=== PATIENT | female | born 1975 | race Caucasian/White ===

== ENCOUNTER → 2019-06-21 | Outpatient (CLI) | payer OTHER | LOC: M SLEEP HO 10:10 | PROVIDERS: ATTEND Internal Medicine Cardiovascular Disease | DX: R06.83 Snoring (principal) ==

== ENCOUNTER 2019-07-10 05:57 | Day surgery (SDC) | payer OTHER ==
[~2019-07-10] VITALS: Ht 160 cm; Wt 64.9 kg
[~2019-07-10 05:57] MED LIST: ATOR80TA59 PO; CHLO25TA PO; D32000TA PO; TELM1TAB37 PO
[2019-07-10] MEDS ORDERED: LR 1,000 ML IV ONE (06:00)
[2019-07-10 06:35] LABS: HEMATOCRIT 34.7 % (36.0-47.0)
[2019-07-10 06:44] LABS: HCG, SERUM QUALITATIVE NEGATIVE (NEGATIVE)
[2019-07-10] MEDS ORDERED: LIDOCAINE W/EPINEPHRINE 1% 20ML VIAL As Ordered ONE (06:56)
[2019-07-10] MEDS ORDERED: IODINE STRONG SOLN 15 ML BTL As Ordered ONE (06:56)
[2019-07-10] MEDS ORDERED: KETOROLAC 60 MG/2 ML VIAL (J1885) As Ordered ONE (07:15)
[2019-07-10] MEDS ORDERED: fentaNYL 100 MCG/2 ML INJECTION (J3010) As Ordered ONE (07:15)
[2019-07-10] MEDS ORDERED: dexameTHASONE 4 MG/ML 1ML VIAL (J1100) As Ordered ONE (07:15)
[2019-07-10] MEDS ORDERED: MIDAZOLAM INJ 2 MG/2 ML VIAL (J2250) As Ordered ONE (07:15)
[2019-07-10] MEDS ORDERED: ONDANSETRON 4MG/2ML VIAL (J2405) As Ordered ONE (07:16)
[2019-07-10] MEDS ORDERED: PROPOFOL 200 MG/20 ML VIAL As Ordered ONE (07:16)
[2019-07-10] MEDS ORDERED: LIDOCAINE 2% INJ 100 MG/5 ML SDV (FOR ANES.) As Ordered ONE (07:16)
[2019-07-10] MEDS ORDERED: ACETAMINOPHEN 1000MG 100ML IV BTL (OFIRMEV) (J0131 PER 10MG) As Ordered ONE (07:16)
[2019-07-10] MEDS ORDERED: SCOPOLAMINE 1MG TRANSDERMAL PATCH As Ordered ONE (07:31)
[2019-07-10] MEDS ORDERED: LIDOCAINE 1% SDV INJ 30 ML VIAL As Ordered ONE (07:52)
[2019-07-10] MEDS ORDERED: METOCLOPRAMIDE INJ 10MG/2ML VIAL (J2765) As Ordered ONE (07:57)
[2019-07-10] MEDS ORDERED: SCOPOLAMINE 1MG TRANSDERMAL PATCH TOP ONE (08:00)
[2019-07-10] MEDS ORDERED: ePHEDrine SULFATE 25 MG/5 ML(5MG/ML) SYRINGE As Ordered ONE (08:25)
[2019-07-10] MEDS ORDERED: fentaNYL 100 MCG/2 ML INJECTION (J3010) IV PRN (09:00)
[2019-07-10] MEDS ORDERED: MEPERIDINE INJ 25 MG/ML VIAL (J2175) IV PRN (09:00)
[2019-07-10] MEDS ORDERED: ONDANSETRON 4MG/2ML VIAL (J2405) IV PRN (09:00)
[2019-07-10] MEDS ORDERED: METOCLOPRAMIDE INJ 10MG/2ML VIAL (J2765) IV PRN (09:00)
[2019-07-10] MEDS ORDERED: oxyCODONE 5MG TAB PO PRN (09:00)
[2019-07-10] MEDS ORDERED: LR 1,000 ML IV SCH (09:00)
[2019-07-10 09:35] VITALS: BP 144/78
--- NOTE | 2019-07-10 10:55 | RO ---
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 PROCEDURE PERFORMED: LEEP. SURGEON: Purvi Menjivar MD. ANESTHESIA: General. DESCRIPTION OF FINDINGS: There was a central nonstaining portion of the cervix when Lugol solution was applied. Infection classification II. MATERIALS TO LAB: 1. Superficial LEEP. 2. Deep LEEP. ESTIMATED BLOOD LOSS: 10 mL. IV FLUIDS: 1 liter of lactated Ringer's. Urine output was not measured INDICATIONS FOR OPERATION: Celine is a 43-year-old 6, 4, P 3-1-0-4, who has a history of persistent low grade squamous intraepithelial lesion of the cervix after counseling, after previous colposcopy revealed continued Low-grade squamous intraepithelial lesion (LGSIL), the patient desired a Loop Electrosurgical Excision Procedure (LEEP) procedure for treatment in the hopes that this will resolve the issue. DESCRIPTION OF OPERATION: After obtaining informed consent the patient was taken to the operating room where she underwent general anesthesia. She was placed in low lithotomy position and the perineum and vagina were prepped and draped in sterile fashion. A coated speculum was placed into the vagina and 10 mL of 1% lidocaine were injected for an intracervical block. Lugol solution was applied. LEEP was completed in two passes. The first was a superficial LEEP and the second was a deep portion. Electrocautery was applied to the LEEP bed with adequate hemostasis. Monsel solution was applied afterwards with adequate hemostasis noted. The patient tolerated the procedure well. Specimen was sent off to pathology. The patient was awakened from anesthesia and transferred to the recovery room in good condition after speculum was removed and vaginal sweep revealed nothing retained the vagina. All counts were correct times two.
== END 2019-07-10 10:18 | disposition home or self-care (01) ==
LOC: M SDC 05:57 → EDUNIT# 07:30 → M SDC 10:18
PROVIDERS: ATTEND Obstetrics & Gynecology
DX: N87.0 Mild cervical dysplasia (principal); I10 Essential (primary) hypertension; Z79.899 Other long term (current) drug therapy; Z88.5 Allergy status to narcotic agent
CPT/HCPCS: 36415; 57522; 84703; 85014; 85018; 86850; 86900; 86901; 88307; J0131; J1100; J1885; J2250; J2405; J2765; J3010

== ENCOUNTER 2023-11-24 12:32 | Outpatient (CLI) | payer OTHER ==
[~2023-11-24] VITALS: Ht 160 cm; Wt 66.5 kg
[~2023-11-24 12:32] MED LIST changes: +IRON1TAB2 PO; +LEXA5TAB13 PO; +LOSA100T46; +LOSA25TA13; +TRIA37.5
[2023-11-24 12:45] VITALS: BP 172/98; O2SAT 98
[2023-11-24] MEDS: FERRIC CARBOXYMALTOSE INJ 750 MG in NS 250 ML (>50kg) IV ONE (12:55)
[2023-11-24 13:50] VITALS: BP 180/99; O2SAT 98
== END 2023-11-24 13:50 ==
LOC: M INFU 12:32
PROVIDERS: ATTEND Nurse Practitioner
DX: D50.9 Iron deficiency anemia, unspecified (principal); Z88.5 Allergy status to narcotic agent
CPT/HCPCS: 96365; J1439

== ENCOUNTER 2023-12-02 10:30 | Outpatient (CLI) | payer OTHER ==
[2023-12-02 10:35] VITALS: BP 184/100; O2SAT 99
[2023-12-02] MEDS ORDERED: LABE200T5 PO (10:55)
[2023-12-02] MEDS: FERRIC CARBOXYMALTOSE INJ 750 MG in NS 250 ML IV ONE (11:00)
[2023-12-02 12:21] VITALS: BP 184/90; O2SAT 98
== END 2023-12-02 12:20 ==
LOC: M INFU 10:30
PROVIDERS: ATTEND Nurse Practitioner
DX: D50.9 Iron deficiency anemia, unspecified (principal); Z88.5 Allergy status to narcotic agent
CPT/HCPCS: 96365; J1439